=== PATIENT | male | born 1980 | race Asian ===

== ENCOUNTER 2017-05-26 06:53 | Outpatient (CLI) | payer OTHER ==
--- NOTE | 2017-05-26 18:52 | XRAY Report ---
DATE OF SERVICE: 05/26/2017 TWO VIEW CHEST: 05/26/2017 CLINICAL INDICATION: Preoperative evaluation for kidney donation. COMPARISON: 03/31/2016 Frontal and lateral views of the chest demonstrate a normal cardiac silhouette. The lungs are clear. No effusion or pneumothorax is present. IMPRESSION: Normal chest, unchanged. TD: 05/26/2017 19:52
== END 2017-05-26 06:54 | disposition home or self-care (01) ==
LOC: DI 06:53
PROVIDERS: ATTEND Family Medicine
DX: Z01.818 Encounter for other preprocedural examination (principal)
CPT/HCPCS: 71046

== ENCOUNTER 2017-05-31 22:15 | Outpatient (CLI) | payer OTHER ==
--- NOTE | 2017-06-01 10:00 | Ultrasound Report ---
DATE OF SERVICE: 05/31/2017 COMPLETE ABDOMINAL ULTRASOUND: 05/31/2017 CLINICAL INDICATION: Renal donor, preoperative evaluation. TECHNIQUE: Real-time scanning was performed with it sales representative static images obtained. FINDINGS: The liver measures 14.7 cm. Hepatic echogenicity is heterogeneous, likely representing fatty infiltration. Multiple simple cysts are noted in the left lobe, measuring up to 1 cm in diameter. No solid hepatic lesion or intrahepatic biliary dilatation is seen. The common bile duct measures 2 mm. The gallbladder demonstrates multiple small echogenic foci adherent to the lamas, which may represent small gallbladder wall polyps or foci of adherent tumefactive sludge. No cholelithiasis or wall thickening is seen. The pancreas is obscured by bowel gas. The right kidney measures 10.8 cm, and the left kidney measures 11.2 cm. Both kidneys demonstrate normal cortical echotexture. No hydronephrosis or solid renal lesion is appreciated. The spleen measures 10.4 cm, and demonstrates normal echotexture. The abdominal aorta is normal in caliber. The inferior vena cava is unremarkable. No free fluid is present. IMPRESSION: 1. LIKELY FATTY INFILTRATION OF THE LIVER. 2. SMALL GALLBLADDER WALL POLYPS OR FOCI OF ADHERENT TUMEFACTIVE SLUDGE. NO CHOLELITHIASIS. 3. NORMAL APPEARANCE OF THE KIDNEYS. TD: 06/01/2017 10:58
== END 2017-05-31 23:59 ==
LOC: DI 22:15
PROVIDERS: ATTEND Family Medicine
DX: Z01.818 Encounter for other preprocedural examination (principal); Z52.4 Kidney donor
CPT/HCPCS: 76700

== ENCOUNTER 2017-06-03 07:03 | Outpatient (CLI) | payer OTHER ==
[2017-06-03] MEDS ORDERED: IOPAMIDOL-300 100 ML VIAL ONE (10:28)
--- NOTE | 2017-06-03 13:33 | Nuclear Medicine Report ---
EXAM: RENOGRAM WITH LASIX EXAM DATE: 06/03/2017 08:46 AM. CLINICAL HISTORY: KIDNEY DONOR. COMPARISON: None. TECHNIQUE: Adequate hydration status was ensured. Patient received the intravenous administration of 5.2 mCi Tc-99m MAG3. Immediate renal blood flow images were acquired for 2 minutes. Renal dynamic charis ges were acquired from the posterior projection for approximately 30 minutes. Postvoid images were ac quired as well. FINDINGS: Renal Vascular Flow: Normal, symmetric. Renal Parenchymal Function: Prompt uptake and early excretion bilaterally. Drainage: Prompt spontaneous drainage bilaterally. Postvoid Images: Minimal residual activity in the right renal collecting system. Differential Function: Left Kidney = 50.5% Right Kidney = 49.5% IMPRESSION: 1. Normal renogram. [facility] Referring Provider Line: [phone] SITE ID: [id number]
== END 2017-06-03 07:04 | disposition home or self-care (01) ==
LOC: DI 07:03
PROVIDERS: ATTEND Family Medicine
DX: Z01.818 Encounter for other preprocedural examination (principal); Z52.4 Kidney donor
CPT/HCPCS: 78707

== ENCOUNTER 2017-06-03 07:03 | Outpatient (CLI) | payer OTHER ==
--- NOTE | 2017-06-03 14:51 | CT Report ---
DATE OF SERVICE: 06/03/2017 CT ANGIO ABDOMEN: 06/03/2017 CLINICAL INDICATION: Preop kidney donation, evaluate vascular anatomy. TECHNIQUE: Axial CT images of the abdomen were obtained with 100 mL Isovue 300 intravenously. Sagittal and coronal 3-D reconstructions were performed. FINDINGS: Limited evaluation of the lung bases demonstrates atelectasis. ABDOMEN: The liver demonstrates multiple cysts in the left lobe. The spleen, pancreas and adrenal glands appear unremarkable. The left kidney demonstrates a single renal artery and renal vein. There is no evidence of early branching. A single ureter is present. No hydronephrosis is present. The right kidney demonstrates a single renal artery and renal vein, without evidence of early branching. A single ureter is present. No hydronephrosis is present. A prominent left lumbar vein drains into the left renal vein just below the crossing of the left renal artery. The visualized bowel is unremarkable. The celiac, superior mesenteric, and inferior mesenteric arteries are widely patent. No free gas, free fluid, or abdominal adenopathy is present. IMPRESSION: NO EVIDENCE OF ABERRANT RENAL VASCULAR ANATOMY OR COLLECTING SYSTEM DUPLICATION. PROMINENT LEFT LUMBAR VEIN DRAINING INTO THE LEFT RENAL VEIN. In accordance with CT protocol optimization, one or more of the following dose reduction techniques were utilized for this exam: automated exposure control, adjustment of mA and/or KV based on patient size, or use of iterative reconstructive technique. TD: 06/03/2017 14:50 LDAY
== END 2017-06-03 07:04 | disposition home or self-care (01) ==
LOC: DI 07:03
PROVIDERS: ATTEND Family Medicine
DX: Z01.818 Encounter for other preprocedural examination (principal); Z52.4 Kidney donor
CPT/HCPCS: 74175; 78707; A9562; Q9967

== ENCOUNTER 2017-10-31 02:04 | Outpatient (CLI) | payer OTHER ==
--- NOTE | 2017-10-31 03:26 | XRAY Report ---
Procedure Date: 10/31/2017 Accession Number: [id number] / [id number] Procedure: XR - Chest 2 View X-Ray CPT Code: 43144 FULL RESULT: EXAM: CHEST RADIOGRAPHY EXAM DATE: 10/31/2017 02:28 AM. CLINICAL HISTORY: Z52. 4 - KIDNEY DONOR. COMPARISON: 05/26/2017. TECHNIQUE: 2 views. FINDINGS: Lungs/Pleura: No alveolar consolidation or pleural effusion seen. No pneumothorax. Mediastinum: Heart and mediastinal contours are unremarkable. Other: None. IMPRESSION: 1. No acute abnormality seen in the chest. [facility]
== END 2017-10-31 02:05 | disposition home or self-care (01) ==
LOC: DI 02:04
PROVIDERS: ATTEND Emergency Medicine
DX: Z52.4 Kidney donor (principal)
CPT/HCPCS: 71046

== ENCOUNTER 2017-11-08 20:53 | Outpatient (CLI) | payer OTHER ==
--- NOTE | 2017-11-09 09:26 | Ultrasound Report ---
Procedure Date: 11/08/2017 Accession Number: [id number] / [id number] Procedure: US - Abdomen Complete CPT Code: FULL RESULT: EXAM: Abdomen Complete DATE: 11/08/2017 9:37 PM CLINICAL HISTORY: KIDNEY DONOR COMPARISON: 05/31/2017 TECHNIQUE: Real-time scanning was performed with static images obtained. FINDINGS: Liver: The liver demonstrates increased echogenicity, compatible with fatty infiltration. Multiple cysts are noted left lobe, measuring up to 2.1 cm. The liver measures 15 cm. Main portal vein flow: Hepatopetal. Gallbladder: Multiple polyps are again seen in the gallbladder. No cholelithiasis or wall thickening. Biliary System: Common bile duct measures 3 mm. No intrahepatic or extrahepatic ductal dilatation. Pancreas: Visualized portion is unremarkable. Kidneys: Right: 10.4 cm longitudinally. Normal. No contour-deforming mass, stones, or hydronephrosis. Left: 11.1 cm longitudinally. Normal. No contour-deforming mass, stones, or hydronephrosis. Spleen: 9.9 cm. Normal in size and echotexture. Aorta and Inferior Vena Cava: Unremarkable. IMPRESSION: Echogenic liver, likely representing fatty infiltration. Hepatic cysts. Gallbladder wall polyps. [facility]
== END 2017-11-08 20:54 | disposition home or self-care (01) ==
LOC: DI 20:53
PROVIDERS: ATTEND Internal Medicine
DX: Z52.4 Kidney donor (principal); Z00.5 Encounter for examination of potential donor of organ and tissue; K76.89 Other specified diseases of liver; K82.4 Cholesterolosis of gallbladder
CPT/HCPCS: 76700

== ENCOUNTER 2021-02-05 06:43 | Emergency (ER) | payer BC, OTHER ==
[2021-02-05 06:59] VITALS: BP 134/82
--- NOTE | 2021-02-05 07:27 | ED Physician Documentation ---
PD HPI LOWER EXT INJURY - Stated complaint Stated Complaint: RT LEG PX - Chief complaint Chief Complaint: Ext Problem - History obtained from History obtained from: Patient - History of Present Illness PD HPI LOW EXT INJURY LOCATION: Right, Lower leg Type of injury: Other (no known injury) Timing - onset: How many days ago (2) Timing - duration: Days (2) Timing - details: Gradual onset, Still present Improved by: Rest Worsened by: Moving, Palpating Associated symptoms: No: Weakness, Numbness, Tingling, Swelling Contributing factors: No: Anticoagulated Similar symptoms before: Has not had sx before Recently seen: Not recently seen - Additional information Additional information: 41-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 He has pain with walking and is limping related to this. He is concerned about the possibility of a blood clot in his leg. Review of Systems Constitutional: denies: Fever Ears: denies: Ear pain Nose: denies: Reviewed and negative Throat: denies: Sore throat Cardiac: denies: Chest pain / pressure, Palpitations Respiratory: denies: Dyspnea, Cough GI: denies: Vomiting PD PAST MEDICAL HISTORY - Present Medications Home Medications: Ambulatory Orders Medication Instructions Recorded Confirmed No Known Home Medications 02/05/21 02/05/21 - Allergies Allergies/Adverse Reactions: Allergies Allergy/AdvReac Type Severity Reaction Status Date / Time doxycycline AdvReac Rash Verified 02/05/21 06:59 PD ED PE NORMAL - General General: Alert and oriented X 3, No acute distress, Well developed/nourished - HEENT HEENT: Atraumatic, PERRL, EOMI - Neck Neck: Supple, no meningeal sign, No bony TTP - Cardiac Cardiac: RRR, No murmur - Respiratory Respiratory: No respiratory distress, Clear bilaterally - Abdomen Abdomen: Soft, Non tender - Derm Derm: Normal color, Warm and dry, No rash - Extremities Extremities: No deformity, No edema, Other (tenderness to the anterolateral calf of the right leg) - Neuro Neuro: Alert and oriented X 3, net sorter 2-12 intact, No motor deficit, No sensory deficit, Normal speech Eye Opening: Spontaneous Motor: Obeys Commands Verbal: Oriented GCS Score: 15 - Psych Psych: Normal mood, Normal affect Results - Vitals Vitals: Vital Signs - 24 hr 02/05/21 06:56 Temperature 36.4 C L Heart Rate 92 Respiratory 16 Rate Blood Pressure 134/82 H O2 Saturation 97 Oxygen O2 Source Room air - Rads (name of study) duplex Radiology: Prelim report reviewed (Impression: Negative right lower extremity duplex ultrasound for DVT), EMP read indepedently, See rad report PD MEDICAL DECISION MAKING - ED course Complexity details: reviewed results, re-evaluated patient, considered differential, d/w patient ED course: 41 y/o male with right calf pain has a negative duplex and is diagnosed with a muscle strain. Departure - Departure Disposition: 01 Home, Self Care Clinical Impression: Gastrocnemius strain Qualifiers: Encounter type: initial encounter Laterality: right Qualified Code(s): S86.111A - Strain of other muscle(s) and tendon(s) of posterior muscle group at lower leg level, right leg, initial encounter Condition: Stable Instructions: ED Strain Muscle Ext Follow-Up: [facility] [Provider Group] Forms: Activity restrictions Discharge Date/Time: 02/05/21 07:57
--- NOTE | 2021-02-05 08:46 | Ultrasound Report ---
PROCEDURE: Duplex Ext Veins Right INDICATIONS: calf pain TECHNIQUE: Real-time imaging, as well as color and pulse Doppler interrogation, were performed of the lower extr emity deep veins from the inguinal ligament to the popliteal fossa. COMPARISON: None. FINDINGS: The deep veins are normally compressible, and free of intraluminal thrombus. Color and pu lse Doppler demonstrate normal phasic intraluminal flow. There is normal augmentation response to di stal compression maneuver. IMPRESSION: Negative right lower extremity duplex ultrasound for DVT. Reviewed by: Moises Anderson MD on 02/05/2021 8:45 AM PDT Approved by: Moises Anderson MD on 02/05/2021 8:45 AM PDT Station ID: [id number]
== END 2021-02-05 07:57 | disposition home or self-care (01) ==
LOC: ED 06:43
DX: S86.111A Strain of other muscle(s) and tendon(s) of posterior muscle group at lower leg level, right leg, initial encounter (principal); X58.XXXA Exposure to other specified factors, initial encounter
CPT/HCPCS: 99282; 99284